=== PATIENT | male | born 1950 | race Caucasian/White ===

== ENCOUNTER 2017-07-03 18:26 | Emergency (ER) | payer MEDICARE, OTHER ==
[2017-07-03] MEDS ORDERED: ACETAMINOPHEN 325 MG TABLET PO ONE (18:30)
--- NOTE | 2017-07-03 19:30 | ER Document Report ---
ED Medical Screen (RME) - General Chief Complaint: Abdominal Pain Stated Complaint: ABDOMINAL PAIN Time Seen by Provider: 07/03/17 19:27 Mode of Arrival: Wheelchair Information source: Patient Notes: Patient presents complaining of right lower quadrant abdominal pain for several weeks that is worse today. Nausea but denies any vomiting. Patient states he has diarrhea only because his gave him something to move his bowels. Patient denies any urinary symptoms fever or any change in appetite. hx: Hypertension, dyslipidemia, back surgery I have greeted and performed a rapid initial assessment of this patient. A comprehensive ED assessment and evaluation of the patient, analysis of test results and completion of the medical decision making process will be conducted by additional ED providers. TRAVEL OUTSIDE OF THE [place] IN LAST 30 DAYS: No - Related Data Allergies/Adverse Reactions: No Known Allergies Allergy (Unverified 07/03/17 18:30) Past Medical History - Social History Chew tobacco use (# tins/day): No Frequency of alcohol use: None Drug Abuse: None Renal/ Medical History: Denies: Hx Peritoneal Dialysis Physical Exam - Vital signs Vitals: Temp Pulse Resp BP Pulse Ox 98.1 F 68 18 138/76 H 99 07/03/17 18:46 07/03/17 18:46 07/03/17 18:46 07/03/17 18:46 07/03/17 18:46 - Abdominal Tenderness: Tender - Right lower quadrant Course - Vital Signs Vital signs: Temp Pulse Resp BP Pulse Ox 98.1 F 68 18 138/76 H 99 07/03/17 18:46 07/03/17 18:46 07/03/17 18:46 07/03/17 18:46 07/03/17 18:46
[2017-07-03 20:31] LABS: ABSOLUTE BASOPHILS # (AUTO) 0.1 10^3/uL (0.0-0.2); ABSOLUTE EOSINOPHILS # (AUTO) 0.2 10^3/uL (0.0-0.6); ABSOLUTE LYMPHOCYTES (AUTO) 1.4 10^3/uL (0.5-4.7); ABSOLUTE MONOCYTES (AUTO) 0.7 10^3/uL (0.1-1.4); ABSOLUTE NEUT (AUTO) 10.9 10^3/uL (1.7-8.2); BASOPHILS % (AUTO) 0.4 % (0-2); EOSINOPHILS % (AUTO) 1.5 % (0-6); HEMATOCRIT 42.9 % (37.9-51.0); HEMOGLOBIN 14.2 g/dL (13.5-17.0); LYMPHOCYTES % (AUTO) 10.5 % (13-45); MEAN CORPUSCULAR HEMOGLOBIN 29.4 pg (27.0-33.4); MEAN CORPUSCULAR VOLUME 89 fl (80-97); MONOCYTES % (AUTO) 5.2 % (3-13); PLATELET COUNT 258 10^3/uL (150-450); RED BLOOD COUNT 4.83 10^6/uL (4.35-5.55); RED CELL DISTRIBUTION WIDTH 14.8 % (11.5-14.0); SEGMENTED NEUTROPHILS % (AUTO) 82.4 % (42-78); TOTAL CELLS COUNTED % (AUTO) 100 %; WHITE BLOOD COUNT 13.3 10^3/uL (4.0-10.5)
[2017-07-03 20:39] LABS: AMORPHOUS SEDIMENT,URINE TRACE /HPF; APPEARANCE,URINE SLIGHTLY-CLOUDY; BILIRUBIN,URINE NEGATIVE (NEGATIVE); COLOR,URINE YELLOW; GLUCOSE, URINE NEGATIVE (NEGATIVE); KETONES,URINE NEGATIVE (NEGATIVE); LEUKOCYTE ESTERASE,URINE NEGATIVE (NEGATIVE); NITRITE,URINE NEGATIVE (NEGATIVE); PROTEIN,URINE NEGATIVE (NEGATIVE); UROBILINOGEN,URINE NEGATIVE mg/dL (<2.0)
[2017-07-03 20:49] LABS: ALANINE AMINOTRANSFERASE 37 U/L (21-72); ALBUMIN 4.7 g/dL (3.5-5.0); ALKALINE PHOSPHATASE 100 U/L (38-126); ANION GAP 8 (5-19); ASPARTATE AMINO TRANSFERASE 31 U/L (17-59); BILIRUBIN,DIRECT 0.7 mg/dL (0.0-0.4); BILIRUBIN,TOTAL 0.7 mg/dL (0.2-1.3); BLOOD UREA NITROGEN 21 mg/dL (7-20); CALCIUM 10.1 mg/dL (8.4-10.2); CARBON DIOXIDE 32 mmol/L (22-30); CHLORIDE 101 mmol/L (98-107); GLUCOSE 95 mg/dL (75-110); LIPASE 137.1 U/L (23-300); POTASSIUM 4.2 mmol/L (3.6-5.0); SODIUM 141.3 mmol/L (137-145); TOTAL PROTEIN 7.8 g/dL (6.3-8.2)
--- NOTE | 2017-07-03 20:58 | RADIOLOGY REPORT (SQ) ---
EXAM DESCRIPTION: KUB/ABDOMEN (SINGLE VIEW) COMPLETED DATE/TIME: 07/03/2017 8:36 pm REASON FOR STUDY: RLQ pain COMPARISON: None. NUMBER OF VIEWS: One view. TECHNIQUE: Supine radiographic image of the abdomen acquired. LIMITATIONS: None. FINDINGS: BOWEL GAS PATTERN: Scattered non-dilated small bowel loops. No obstructive pattern. CALCIFICATIONS: No suspicious calcifications. SOFT TISSUES: No gross mass or suggestion of organomegaly. HARDWARE: None in the abdomen.. BONES: No acute fracture. No worrisome bone lesions. OTHER: No other significant finding. IMPRESSION: NON-SPECIFIC BOWEL GAS PATTERN WITHOUT EVIDENCE FOR OBSTRUCTION. TECHNICAL DOCUMENTATION: JOB ID: [id number] [employer]- All Rights Reserved
--- NOTE | 2017-07-03 23:20 | RADIOLOGY REPORT (SQ) ---
EXAM DESCRIPTION: CT ABD/PELVIS WITH IV ONLY COMPLETED DATE/TIME: 07/03/2017 11:00 pm REASON FOR STUDY: rlq abdominal pain COMPARISON: KUB 07/03/2017. TECHNIQUE: CT scan of the abdomen and pelvis performed using helical scanning technique with dynamic intravenous contrast injection. No oral contrast. Images reviewed with lung, soft tissue, and bone windows. Reconstructed coronal and sagittal MPR images reviewed. Delayed images for evaluation of the urinary system also acquired. All images stored on PACS. All CT scanners at this facility use dose modulation, iterative reconstruction, and/or weight based d osing when appropriate to reduce radiation dose to as low as reasonably achievable (ALARA). [facility]: Dose Right [facility]: CareDose [facility]: Dose Right [facility]: Teradose 4D [facility]: Fluoresentric CONTRAST TYPE AND DOSE: contrast/concentration: Isovue 370.00 mg/ml; Total Contrast Delivered: 100.0 ml; Total Saline Delivered: 70.0 ml RENAL FUNCTION: Creatinine 1.28 RADIATION DOSE: CT Rad equipment meets quality standard of care and radiation dose reduction techniq ues were employed. CTDIvol: 11.8 - 16.0 mGy. DLP: 1416 mGy-cm.. LIMITATIONS: Streak artifact from the orthopedic hardware at the spine. FINDINGS: LOWER CHEST: Subsegmental atelectasis at the right lower lobe. No pleural effusion. LIVER: Normal size. No masses. No dilated ducts. SPLEEN: Normal size. PANCREAS: No significant calcifications. No adjacent inflammation or peripancreatic fluid collections . Pancreatic duct not dilated. GALLBLADDER: No identified stones by CT criteria. No inflammatory changes to suggest cholecystitis. ADRENAL GLANDS: No significant masses or asymmetry. RIGHT KIDNEY AND URETER: Cysts at the right kidney are measuring up to 4.1 cm. No significant calci fications. No hydronephrosis or hydroureter. LEFT KIDNEY AND URETER: Cysts at the left kidney are measuring up to 2.6 cm. No significant calcifi cations. No hydronephrosis or hydroureter. AORTA AND VESSELS: No abdominal aortic aneurysm. RETROPERITONEUM: No retroperitoneal hemorrhage or masses. BOWEL AND PERITONEAL CAVITY: The stomach is distended with oral contents. No dilated small bowel loo ps. There is scattered colonic diverticulosis with no CT evidence for acute diverticulitis. Round l ow-density areas are seen at the sigmoid colon measuring 1.5 x 1.5 cm and at the rectum measuring 2.3 x 2.3 cm. APPENDIX: Normal. PELVIS: The urinary bladder is decompressed with circumferential wall thickening measuring up to 6 mm . Low-density area with peripheral calcifications at the pelvis measuring 1.0 x 1.6 cm, may represen t a remote omental infarct. No free fluid. ABDOMINAL WALL: Small fat containing bilateral inguinal hernias. There is a small fat containing umb ilical hernia. BONES: Postsurgical changes with orthopedic hardware at the lower thoracic spine and lumbar spine. IMPRESSION: 1. Circumferential wall thickening of the urinary bladder, may be due to underdistention versus cystitis. Please correlate with laboratory values/ analysis. 2. Mild colonic diverticulosis. Round low-density areas at the sigmoid colon and at the rectum. Cor relation with colonoscopy recommended to exclude underlying neoplasm. TECHNICAL DOCUMENTATION: JOB ID: [id number] Quality ID # [id number]: Final reports with documentation of one or more dose reduction techniques (e.g., Au tomated exposure control, adjustment of the mA and/or kV according to patient size, use of iterative reconstruction technique) 2010 [employer]- All Rights Reserved
[2017-07-04] MEDS ORDERED: KETOROLAC TROMETHAMINE INJ/PF 30 MG/1 ML SDV IV ONE (00:16)
[2017-07-04] MEDS ORDERED: MORPHINE SULFATE IR 15 MG TABLET PO ONE (00:16)
[2017-07-04] MEDS ORDERED: HYDROCODONE/ACETAMINOPHEN 5-325 MG (6 TAB/ER DISP) PO PRN (00:21)
--- NOTE | 2017-07-04 00:21 | ER Document Report ---
ED General - General Chief Complaint: Abdominal Pain Stated Complaint: ABDOMINAL PAIN Time Seen by Provider: 07/03/17 19:27 Mode of Arrival: Wheelchair Notes: Patient is a 66-year-old male who presents with 6 weeks of intermittent right lower quadrant abdominal pain. Patient states that he has episodic, severe, stabbing, cramping pain to the right lower abdomen that comes on abruptly and then resolves abruptly. Nothing seems to prompt the pain and it does resolve spontaneously. He denies any history of similar symptoms prior to the past 6 weeks. He denies any vomiting, does note that he is frequently constipated but took a laxative today with large amount of stool output without any improvement of his pain. He denies any fever or constitutional symptoms. He has not seen his general doctor regarding today's concerns. He came to the emergency department today because he had an episode of pain that was more severe than usual. No prior history of abdominal surgeries though he does report a history of a prior low back surgery that had an abdominal approach. He is up-to-date on his colonoscopy screenings. TRAVEL OUTSIDE OF THE [place] IN LAST 30 DAYS: No - Related Data Allergies/Adverse Reactions: No Known Allergies Allergy (Unverified 07/03/17 18:30) Past Medical History - General Information source: Patient - Social History Smoking Status: Former Smoker Chew tobacco use (# tins/day): No Frequency of alcohol use: None Drug Abuse: None Lives with: Spouse/Significant other Family History: Reviewed & Not Pertinent Patient has suicidal ideation: No Patient has homicidal ideation: No - Past Medical History Cardiac Medical History: Reports: Hx Hypercholesterolemia, Hx Hypertension Renal/ Medical History: Denies: Hx Peritoneal Dialysis Psychiatric Medical History: Reports: Hx Depression Past Surgical History: Reports: Hx Orthopedic Surgery - back surg x3 Review of Systems - Review of Systems Notes: Constitutional: Negative for fever. HENT: Negative for sore throat. Eyes: Negative for visual changes. Cardiovascular: Negative for chest pain. Respiratory: Negative for shortness of breath. Gastrointestinal: Positive for abdominal pain Genitourinary: Negative for dysuria. Musculoskeletal: Negative for back pain. Skin: Negative for rash. Neurological: Negative for headaches, weakness or numbness. 10 point ROS negative except as marked above and in HPI. Physical Exam - Vital signs Vitals: Temp Pulse Resp BP Pulse Ox 98.1 F 68 18 138/76 H 99 07/03/17 18:46 0218 18:46 07/03/17 18:46 07/03/17 18:46 07/03/17 18:46 Interpretation: Normal Notes: PHYSICAL EXAMINATION: GENERAL: Well-appearing, well-nourished and in no acute distress. HEAD: Atraumatic, normocephalic. EYES: Pupils equal round and reactive to light, extraocular movements intact, sclera anicteric, conjunctiva are normal. ENT: nares patent, oropharynx clear without exudates. Moist mucous membranes. NECK: Normal range of motion, supple without lymphadenopathy LUNGS: Breath sounds clear to auscultation bilaterally and equal. No wheezes rales or rhonchi. HEART: Regular rate and rhythm without murmurs ABDOMEN: Soft, mild tenderness the right lower quadrant otherwise no localized areas of tenderness, normoactive bowel sounds. No guarding, no rebound. No masses appreciated. EXTREMITIES: Normal range of motion, no pitting or edema. No cyanosis. NEUROLOGICAL: No focal neurological deficits. Moves all extremities spontaneously and on command. PSYCH: Normal mood, normal affect. SKIN: Warm, Dry, normal turgor, no rashes or lesions noted. Course - Re-evaluation Re-evalutation: 07/04/17 00:17 Patient presents with 6 weeks of intermittent, severe right lower quadrant abdominal pain. Abdominal examination he does have focal tenderness of the right lower quadrant without rebound or guarding. While I am in the room every 1 every 5-10 minutes he has an episode in which he appears to be in severe pain in the right lower quadrant and then has complete resolution of his pain after several minutes. No vomiting or diarrhea. CT scan the abdomen pelvis was obtained given his age and degree of pain and does not reveal any acute pathology other than diverticulosis and possible sigmoid mass. Will treat empirically as an acute diverticulitis given his degree of pain although I have emphasized with the patient that he will need to follow-up with a formal colonoscopy for better clarification of the CT scan results. The remainder of his labs show only a mild leukocytosis and are otherwise unremarkable. No evidence of pyelonephritis or cystitis on urinalysis. Will treat with ciprofloxacin and metronidazole, small amount of pain medications, and I have again emphasized the importance of close outpatient follow-up. At this time will discharge with return precautions and follow-up recommendations. Verbal discharge instructions given a the bedside and opportunity for questions given. Medication warnings reviewed. Patient is in agreement with this plan and has verbalized understanding of return precautions and the need for primary care follow-up in the next 24-72 hours. - Vital Signs Vital signs: Temp Pulse Resp BP Pulse Ox 98.2 F 76 18 131/83 H 99 07/04/17 00:58 07/04/17 00:58 07/04/17 00:58 07/04/17 00:58 07/04/17 00:58 - Laboratory Result Diagrams: 07/03/17 19:55 07/03/17 19:55 Laboratory results interpreted by me: 07/03/17 07/03/17 19:55 19:55 WBC 13.3 H RDW 14.8 H Seg Neutrophils % 82.4 H Lymphocytes % 10.5 L Absolute Neutrophils 10.9 H Carbon Dioxide 32 H BUN 21 H Creatinine 1.28 H Est GFR (Non-Af Amer) 56 L Direct Bilirubin 0.7 H - Diagnostic Test Radiology reviewed: Reports reviewed Discharge - Discharge Clinical Impression: Right lower quadrant pain Condition: Good Disposition: HOME, SELF-CARE Additional Instructions: You have been seen in the Emergency Department (ED) for abdominal pain. Your evaluation did not identify a clear cause of your symptoms but was generally reassuring. Your CT scan does suggest possible inflammation of your colon and you do need a follow-up colonoscopy. Please follow up with your doctor as soon as possible regarding today's emergent visit and the symptoms that are bothering you. Return to the ED if your abdominal pain worsens or fails to improve, you develop bloody vomiting, bloody diarrhea, you are unable to tolerate fluids due to vomiting, fever greater than 101, or other symptoms that concern you. Prescriptions: Ciprofloxacin HCl [Cipro 500 mg Tablet] 500 mg PO BID #20 tablet Metronidazole [Flagyl 500 mg Tablet] 500 mg PO Q6H #40 tablet Referrals: BEE VIVAS NP [Primary Care Provider] - Follow up as needed DAVION ARANDA MD [ACTIVE STAFF] - Follow up as needed
[2017-07-04 01:10] VITALS: BP 131/83
== END 2017-07-04 01:11 | disposition home or self-care (01) ==
LOC: ER 18:26
DX: R10.31 Right lower quadrant pain (principal); Z87.891 Personal history of nicotine dependence
CPT/HCPCS: 99284; 96374; 36415; 83690; 85025; 80053; 81001; 74018; 74177; A9270 ×3; J1885

== ENCOUNTER 2018-11-17 08:41 | Emergency (ER) | payer MEDICARE, OTHER ==
[2018-11-17] MEDS ORDERED: ASPIRIN 81 MG TABLET, CHEWABLE PO ONE (09:21)
--- NOTE | 2018-11-17 09:23 | ER Document Report ---
ED Medical Screen (RME) - General Chief Complaint: Chest Pain Stated Complaint: CHEST PAIN Time Seen by Provider: 11/17/18 09:17 Primary Care Provider: BEE VIVAS NP [Primary Care Provider] - Follow up as needed Mode of Arrival: Ambulatory Information source: Patient Notes: This is a 68-year-old male with past medical history of hypertension presented to the emergency department with left-sided chest pain. Patient reports the pain started several days ago and has progressively gotten worse. Patient reports the pain feels like a very tight squeezing pain just under the breast that radiates through to his back and up into his shoulder and left arm. He reports the pain has gotten so severe that he was unable to sleep last night. He denies any associated symptoms to include nausea, vomiting, shortness of breath or diaphoresis. Exam: Patient calm, cooperative and answering all questions. Skin warm and dry. Heart sounds S1-S2 present with no ectopy noted. Lung sounds clear and equal bilaterally. I have greeted and performed a rapid initial assessment of this patient. A comprehensive ED assessment and evaluation of the patient, analysis of test results and completion of the medical decision making process will be conducted by additional ED providers. Dictation of this chart was performed using voice recognition software; therefore, there may be some unintended grammatical errors. TRAVEL OUTSIDE OF THE [place] IN LAST 30 DAYS: No - Related Data Allergies/Adverse Reactions: No Known Allergies Allergy (Unverified 07/03/17 18:30) Past Medical History - Past Medical History Cardiac Medical History: Reports: Hx Hypercholesterolemia, Hx Hypertension Renal/ Medical History: Denies: Hx Peritoneal Dialysis Psychiatric Medical History: Reports: Hx Depression Past Surgical History: Reports: Hx Orthopedic Surgery - back surg x3 Physical Exam - Vital signs Vitals: Temp Pulse Resp BP Pulse Ox 98.6 F 66 18 129/74 H 100 11/17/18 08:53 11/17/18 08:53 11/17/18 08:53 11/17/18 08:53 11/17/18 08:53 Course - Vital Signs Vital signs: Temp Pulse Resp BP Pulse Ox 98.6 F 66 18 129/74 H 100 11/17/18 08:53 11/17/18 08:53 11/17/18 08:53 11/17/18 08:53 06/19/19 08:53 Doctor's Discharge - Discharge Referrals: BEE VIVAS, [employer] [Primary Care Provider] - Follow up as needed
[2018-11-17 10:17] LABS: ABSOLUTE EOSINOPHILS # (AUTO) 0.1 10^3/uL (0.0-0.6); ABSOLUTE LYMPHOCYTES (AUTO) 1.5 10^3/uL (0.5-4.7); ABSOLUTE MONOCYTES (AUTO) 0.3 10^3/uL (0.1-1.4); ABSOLUTE NEUT (AUTO) 4.1 10^3/uL (1.7-8.2); BASOPHILS % (AUTO) 0.5 % (0-2); EOSINOPHILS % (AUTO) 1.5 % (0-6); HEMATOCRIT 45.1 % (37.9-51.0); HEMOGLOBIN 14.9 g/dL (13.5-17.0); LYMPHOCYTES % (AUTO) 25.1 % (13-45); MEAN CORPUSCULAR HEMOGLOBIN 29.6 pg (27.0-33.4); MEAN CORPUSCULAR HGB CONC 33.1 g/dL (32.0-36.0); MEAN CORPUSCULAR VOLUME 89 fl (80-97); MONOCYTES % (AUTO) 5.2 % (3-13); PLATELET COUNT 212 10^3/uL (150-450); RED BLOOD COUNT 5.04 10^6/uL (4.35-5.55); RED CELL DISTRIBUTION WIDTH 15.3 % (11.5-14.0); SEGMENTED NEUTROPHILS % (AUTO) 67.7 % (42-78); TOTAL CELLS COUNTED % (AUTO) 100 %; WHITE BLOOD COUNT 6.1 10^3/uL (4.0-10.5)
--- NOTE | 2018-11-17 10:25 | RADIOLOGY REPORT (SQ) ---
EXAM DESCRIPTION: CHEST SINGLE VIEW COMPLETED DATE/TIME: 11/17/2018 10:11 am REASON FOR STUDY: chest pain COMPARISON: None. NUMBER OF VIEWS: One view. TECHNIQUE: Single frontal radiographic view of the chest acquired. LIMITATIONS: None. FINDINGS: LUNGS AND PLEURA: Subsegmental airspace opacity left lower lobe. The right lung is clear. MEDIASTINUM AND HILAR STRUCTURES: No masses. Contour normal. HEART AND VASCULAR STRUCTURES: Heart normal in size. Normal vasculature. BONES: No acute findings. HARDWARE: None in the chest. OTHER: No other significant finding. IMPRESSION: Atelectasis. No infiltrate. TECHNICAL DOCUMENTATION: JOB ID: [id number] [employer]- All Rights Reserved Reading location - IP/workstation name: [email or web address]
[2018-11-17 10:51] LABS: ALANINE AMINOTRANSFERASE 34 U/L (21-72); ALBUMIN 4.5 g/dL (3.5-5.0); ALKALINE PHOSPHATASE 83 U/L (38-126); ANION GAP 8 (5-19); ASPARTATE AMINO TRANSFERASE 22 U/L (17-59); BILIRUBIN,DIRECT 0.2 mg/dL (0.0-0.4); BILIRUBIN,TOTAL 0.5 mg/dL (0.2-1.3); BLOOD UREA NITROGEN 17 mg/dL (7-20); CALCIUM 9.8 mg/dL (8.4-10.2); CARBON DIOXIDE 31 mmol/L (22-30); CHLORIDE 104 mmol/L (98-107); CREATINE KINASE 53 U/L (55-170); GLUCOSE 105 mg/dL (75-110); POTASSIUM 4.2 mmol/L (3.6-5.0); SODIUM 143.2 mmol/L (137-145); TOTAL PROTEIN 7.3 g/dL (6.3-8.2)
[2018-11-17 11:02] LABS: CREATINE KINASE MB 0.72 ng/mL (<4.55)
[2018-11-17 11:04] LABS: TROPONIN I < 0.012 ng/mL
[2018-11-17] MEDS ORDERED: NITROGLYCERIN 0.4 MG/TAB 25 TAB/BOTTLE SL PRN (11:07)
--- NOTE | 2018-11-17 16:13 | ER Document Report ---
Entered by JUAN LEE SCRIBE 11/17/18 1040 Acting as scribe for:ANA CURIEL DO ED Cardiac - General Chief Complaint: Chest Pain Stated Complaint: CHEST PAIN Time Seen by Provider: 11/17/18 09:17 Primary Care Provider: BEE VIVAS NP [NO LOCAL MD] - Follow up as needed Mode of Arrival: Ambulatory Information source: Patient Notes: 68-year-old male who presents to the emergency department today with complaints of chest pain that radiates to his back and left upper extremity. Patient describes this pain as a pressure/stabbing sensation. Patient states he has been having this chest pain for the last couple of days but it increased last night. Patient states the pain waxes and wanes but it woke him up from his sleep last night. Patient states his pain is exacerbated with deep breathing. Patient denies any history of OK, shortness of breath, nausea, vomiting, diarrhea, ear pain, cough, or sore throat. Patient mentions that he has been seen by neurology for a right upper extremity tremor. Patient states that his Abilify was stopped, thinking it could be medication related but he has not noticed any change in the tremor. TRAVEL OUTSIDE OF THE [place] IN LAST 30 DAYS: No - Related Data Allergies/Adverse Reactions: No Known Allergies Allergy (Verified 11/17/18 10:05) Past Medical History - General Information source: Patient - Social History Smoking Status: Never Smoker Cigarette use (# per day): No Frequency of alcohol use: None Drug Abuse: None Lives with: Family Family History: Reviewed & Not Pertinent. denies: CAD, CVA - Past Medical History Cardiac Medical History: Reports: Hx Hypercholesterolemia, Hx Hypertension Psychiatric Medical History: Reports: Hx Depression Past Surgical History: Reports: Hx Orthopedic Surgery - back surg x3 Review of Systems - Review of Systems Constitutional: No symptoms reported EENT: denies: Ear pain, Throat pain Cardiovascular: See HPI, Chest pain Respiratory: See HPI, Hurts to breathe. denies: Cough, Short of breath Gastrointestinal: denies: Diarrhea, Nausea, Vomiting Genitourinary: No symptoms reported Male Genitourinary: No symptoms reported Musculoskeletal: No symptoms reported Skin: No symptoms reported Hematologic/Lymphatic: No symptoms reported Neurological/Psychological: No symptoms reported -: Yes All other systems reviewed and negative Physical Exam - Vital signs Vitals: Temp Pulse Resp BP Pulse Ox 98.6 F 66 18 129/74 H 100 11/17/18 08:53 11/17/18 08:53 11/17/18 08:53 11/17/18 08:53 11/17/18 08:53 - Notes Notes: PHYSICAL EXAM GENERAL: Alert, interacts well. No acute distress. HEAD: Normocephalic, atraumatic. EYES: Pupils equal, round, and reactive to light. Extraocular movements intact. ENT: Oral mucosa moist, tongue midline. NECK: Full range of motion. Supple. Trachea midline. LUNGS: Clear to auscultation bilaterally, no wheezes, rales, or rhonchi. No respiratory distress. HEART: Regular rate and rhythm. No murmurs, gallops, or rubs. CHEST: Lower sternal tenderness with palpation. ABDOMEN: Soft, non-tender. Non-distended. Bowel sounds present in all 4 quadrant s. No guarding, rigidity, or rebound. EXTREMITIES: Moves all 4 extremities spontaneously. No edema, radial and dorsalis pedis pulses 2/4 bilaterally. No cyanosis. NEUROLOGICAL: Alert and oriented x3. Normal speech. Right upper extremity tremor. PSYCH: Normal affect, normal mood. SKIN: Warm, dry, normal turgor. No rashes or lesions noted. Course - Re-evaluation Re-evalutation: 11/17/18 16:11 CBC unremarkable, CMP unremarkable, troponin negative x2, chest x-ray shows no acute process, EKG is nonischemic x2. 11/17/18 16:12 Patient has a heart score of 3. Will be referred to Dr. Maher for a stress test as an outpatient. Started on Prilosec for possible GERD causing some of this pain and discharged home. - Vital Signs Vital signs: Temp Pulse Resp BP Pulse Ox 98.1 F 66 20 122/80 98 11/17/18 15:01 11/17/18 08:53 11/17/18 15:01 11/17/18 15:01 11/17/18 15:01 - Laboratory Result Diagrams: 11/17/18 10:06 11/17/18 10:06 Laboratory results interpreted by me: 11/17/18 11/17/18 10:06 10:06 RDW 15.3 H Carbon Dioxide 31 H Creatine Kinase 53 L - EKG Interpretation by Me Additional EKG results interpreted by me: 11/17/18 16:11 EKG shows sinus rhythm at a rate of 64, sinus rhythm, first-degree AV block, no ST segment elevations or depressions, no T wave inversions. Repeat EKG shows sinus rhythm rate of 67, first-degree AV block with a TN interval of 228, no ST segment elevations or depressions, no T wave inversions per my interpretation. Discharge - Discharge Clinical Impression: Substernal chest pain Condition: Stable Disposition: HOME, SELF-CARE Additional Instructions: Chest Pain of Unclear Cause The exact cause of your chest pain isn't clear. Fortunately, there is no evidence of a dangerous medical condition. Further testing may be required to find the source of the pain. Most often, we find that this pain is coming from the chest wall -- the muscles or rib joints in the chest. But chest pain can come from the lung and lung lining, the esophagus, the heart valves or heart lining, and even the stomach or gallbladder. Rest. Eat lightly until the pain is gone. We may prescribe medicine for pain and inflammation. You should call the physician immediately if the pain radiates to the shoulder, jaw or arms; if you start to run a fever or develop a cough; or if you develop shortness of breath, or other new or alarming symptoms. Please take Prilosec as directed on the box [id number]. Please follow-up with Dr. Maher as an outpatient. Please call his office first thing tomorrow morning to try and arrange a stress test. Referrals: BEE VIVAS NP [NO LOCAL MD] - Follow up as needed JARVIS MAHER MD [ACTIVE STAFF] - Follow up in 1 week (Call for appointment tomorrow.) I personally performed the services described in the documentation, reviewed and edited the documentation which was dictated to the scribe in my presence, and it accurately records my words and actions.
[2018-11-17 16:36] VITALS: BP 120/71
--- NOTE | 2018-11-17 20:48 | EKG REPORT ---
SEVERITY:- NORMAL ECG - SINUS RHYTHM : Confirmed by: Xiomara Davison MD 17-Nov-2018 20:47:15
--- NOTE | 2018-11-17 20:48 | EKG REPORT ---
SEVERITY:- ABNORMAL ECG - SINUS RHYTHM FIRST DEGREE AV BLOCK : Confirmed by: Xiomara Davison MD 17-Nov-2018 20:47:09
== END 2018-11-17 16:37 | disposition home or self-care (01) ==
LOC: ER 08:41
DX: R07.89 Other chest pain (principal); M54.9 Dorsalgia, unspecified; M79.602 Pain in left arm; I10 Essential (primary) hypertension
CPT/HCPCS: 93005 ×2; 99285; 36415; 82553; 82550; 83690; 85025; 80053; 84484; 71045; 93010; A9270

== ENCOUNTER 2019-08-31 10:03 | Emergency (ER) | payer MEDICARE, OTHER ==
[2019-08-31] MEDS ORDERED: BENZONATATE 100 MG CAPSULE PO ONE (11:10)
[2019-08-31 12:08] LABS: ALBUMIN 4.6 g/dL (3.5-5.0); ALKALINE PHOSPHATASE 83 U/L (38-126); ANION GAP 9 (5-19); ASPARTATE AMINO TRANSFERASE 28 U/L (17-59); BILIRUBIN,DIRECT 0.1 mg/dL (0.0-0.4); BILIRUBIN,TOTAL 0.7 mg/dL (0.2-1.3); BLOOD UREA NITROGEN 14 mg/dL (7-20); CALCIUM 9.6 mg/dL (8.4-10.2); CARBON DIOXIDE 31 mmol/L (22-30); CHLORIDE 102 mmol/L (98-107); GLUCOSE 112 mg/dL (75-110); POTASSIUM 4.7 mmol/L (3.6-5.0); TOTAL PROTEIN 7.8 g/dL (6.3-8.2)
[2019-08-31 12:11] LABS: ABSOLUTE EOSINOPHILS # (AUTO) 0.2 10^3/uL (0.0-0.6); ABSOLUTE LYMPHOCYTES (AUTO) 1.9 10^3/uL (0.5-4.7); TOTAL CELLS COUNTED % (AUTO) 100 %
--- NOTE | 2019-08-31 12:11 | RADIOLOGY REPORT (SQ) ---
EXAM DESCRIPTION: CHEST SINGLE VIEW IMAGES COMPLETED DATE/TIME: 08/31/2019 11:47 am REASON FOR STUDY: shortness of breath/cough COMPARISON: None. EXAM PARAMETERS: NUMBER OF VIEWS: One view. TECHNIQUE: Single frontal radiographic view of the chest acquired. RADIATION DOSE: NA LIMITATIONS: None. FINDINGS: LUNGS AND PLEURA: Mild right mid lung linear opacities. No dense consolidation. No pleur al effusion. No pneumothorax. MEDIASTINUM AND HILAR STRUCTURES: No masses. Contour normal. HEART AND VASCULAR STRUCTURES: Heart normal in size. Normal vasculature. BONES: No acute findings. HARDWARE: Partially visualized thoracolumbar posterior fusion hardware. OTHER: No other significant finding. IMPRESSION: Minimal right mid lung linear opacities suggestive of scarring. No other evidence of ac beaver thoracic process. TECHNICAL DOCUMENTATION: JOB ID: [id number] [employer]- All Rights Reserved Reading location - IP/workstation name: [email or web address]
[2019-08-31 12:15] LABS: ABSOLUTE MONOCYTES (AUTO) 0.6 10^3/uL (0.1-1.4); ABSOLUTE NEUT (AUTO) 3.8 10^3/uL (1.7-8.2); BASOPHILS % (AUTO) 0.6 % (0-2); HEMOGLOBIN 15.6 g/dL (13.5-17.0); LYMPHOCYTES % (AUTO) 29.3 % (13-45); MEAN CORPUSCULAR HEMOGLOBIN 30.1 pg (27.0-33.4); MEAN CORPUSCULAR VOLUME 89 fl (80-97); MONOCYTES % (AUTO) 8.4 % (3-13); PLATELET COUNT 230 10^3/uL (150-450); RED CELL DISTRIBUTION WIDTH 14.8 % (11.5-14.0); SEGMENTED NEUTROPHILS % (AUTO) 58.7 % (42-78); WHITE BLOOD COUNT 6.6 10^3/uL (4.0-10.5)
--- NOTE | 2019-08-31 12:22 | ER Document Report ---
HPI - HPI Time Seen by Provider: 08/31/19 10:08 Pain Level: 3 Notes: Patient is a 69-year-old male presenting to the emergency department with cough, congestion and low-grade fevers. Patient reports cough and congestion have been ongoing for the last week. He states he has chest pain after a long coughing spell. He states his has been giving him Tessalon Perles which have helped with the cough. He denies any recent travel or exposure to known COVID-19 francisco javier ents. - CARDIOVASCULAR Cardiovascular: REPORTS: Chest pain - discomfort - RESPIRATORY Respiratory: REPORTS: Trouble Breathing, Coughing Past Medical History - General Information source: Patient - Social History Smoking Status: Never Smoker Chew tobacco use (# tins/day): No Frequency of alcohol use: None Drug Abuse: None Family History: Reviewed & Not Pertinent. denies: CAD, CVA Patient has suicidal ideation: No Patient has homicidal ideation: No - Past Medical History Cardiac Medical History: Reports: Hx Hypercholesterolemia, Hx Hypertension Renal/ Medical History: Denies: Hx Peritoneal Dialysis Psychiatric Medical History: Reports: Hx Depression Past Surgical History: Reports: Hx Orthopedic Surgery - back surg x3 Vertical Provider Document - CONSTITUTIONAL Notes: PHYSICAL EXAMINATION: GENERAL: Well-appearing, well-nourished and in no acute distress. HEAD: Atraumatic, normocephalic. EYES: Pupils equal round and reactive to light, extraocular movements intact, sclera anicteric, conjunctiva are normal. ENT: Nares patent, oropharynx clear without exudates. Moist mucous membranes. NECK: Normal range of motion, supple without lymphadenopathy LUNGS: Breath sounds clear to auscultation bilaterally and equal. No wheezes rales or rhonchi. HEART: Regular rate and rhythm without murmurs ABDOMEN: Soft, nontender, nondistended abdomen. No guarding, no rebound. No masses appreciated. Musculoskeletal: Normal range of motion, no pitting or edema. No cyanosis. NEUROLOGICAL: Cranial nerves grossly intact. Normal speech, normal gait. Normal sensory, motor exams PSYCH: Normal mood, normal affect. SKIN: Warm, Dry, normal turgor, no rashes or lesions noted. - INFECTION CONTROL TRAVEL OUTSIDE OF THE [place] IN LAST 30 DAYS: No Course - Re-evaluation Re-evalutation: Work-up today has been reassuring. Chest x-ray negative. EKG shows a sinus rhythm, rate of 62, QTc 419, no ST segment elevations or depressions and a normal axis. Lab work was normal including a negative troponin. - Vital Signs Vital signs: Temp Pulse Resp BP Pulse Ox 98.0 F 65 18 120/76 96 08/31/19 10:03 08/31/19 10:03 08/31/19 10:03 08/31/19 10:03 08/31/19 10:03 - Laboratory Result Diagrams: 08/31/19 10:20 08/31/19 10:20 Laboratory results interpreted by me: 08/31/19 08/31/19 10:20 10:20 RDW 14.8 H Carbon Dioxide 31 H Glucose 112 H Discharge - Discharge Clinical Impression: Respiratory infection Condition: Stable Disposition: HOME, SELF-CARE Additional Instructions: Under x-ray it appears that you have a developing pneumonia. It looks mild at this time. Please take antibiotics as prescribed. Please drink plenty of fluids. Tylenol or ibuprofen for any fever or body aches. Continue taking Tessalon Perles, I have prescribed you some more. Please return to the emergency department with worsening shortness of breath, difficulty breathing or any other life-threatening symptoms. Prescriptions: Benzonatate [Tessalon Perles 100 mg Capsule] 2 tab PO Q8HP PRN #40 capsule PRN Reason: Albuterol Sulfate [Proair HFA Inhalation Aerosol 8.5 gm MDI] 2 puff IH Q4H PRN #1 mdi PRN Reason: Doxycycline Hyclate [Vibramycin 100 mg Tablet] 100 mg PO BID #14 tablet Referrals: RADHA ERNANDEZ PA [Primary Care Provider] - Follow up as needed
[2019-08-31 12:54] VITALS: BP 131/78
--- NOTE | 2019-09-01 09:37 | EKG REPORT ---
SEVERITY:- NORMAL ECG - SINUS RHYTHM : Confirmed by: Nelly Torrez 01-Sep-2019 09:36:39
== END 2019-08-31 12:54 | disposition home or self-care (01) ==
LOC: ER 10:03
DX: J98.8 Other specified respiratory disorders (principal); R07.9 Chest pain, unspecified; R05 Cough; R09.81 Nasal congestion; R50.9 Fever, unspecified; Z79.899 Other long term (current) drug therapy; I10 Essential (primary) hypertension
CPT/HCPCS: 36415; 71045; 80053; 84484; 85025; 93005; 93010; 99285